=== PATIENT | female | born 1990 | race Caucasian/White ===

== ENCOUNTER 2019-05-24 14:38 | Emergency (ER) | payer OTHER ==
[2019-05-24 14:59] LABS: RAPID STREP SCREEN Negative (Negative)
--- NOTE | 2019-05-24 17:15 | ED Physician Documentation ---
PD HPI HEENT - Stated complaint Stated Complaint: SORE THROAT/WHITE PATCHES - Chief complaint Chief Complaint: Heent - History obtained from History obtained from: Patient - History of Present Illness Timing - onset: How many days ago (3) Timing - duration: Days (3) Timing - details: Gradual onset, Still present Location: Throat Improves: Medication Worsens: Swalllowing Associated symptoms: Fever, Congestion, Rhinorrhea, Swollen nodes, Headache Similar symptoms before: Diagnosis (strep) Recently seen: Not recently seen - Additional information Additional information: 29-year-old female has been sick for about 3 days with a sore throat she said a bit of a fever she noticed some white patches on her tonsils and she is come into the emergency department now for treatment she is had strep previously. Review of Systems Constitutional: reports: Fever, Myalgias, Fatigue Eyes: denies: Decreased vision Ears: denies: Ear pain Nose: reports: Congestion. denies: Rhinorrhea / runny nose Throat: reports: Sore throat Cardiac: denies: Chest pain / pressure, Palpitations Respiratory: denies: Dyspnea, Cough GI: denies: Nausea, Vomiting PD PAST MEDICAL HISTORY - Present Medications Home Medications: Ambulatory Orders Medication Instructions Recorded Confirmed Amox/Clav 875/125 [Augmentin] 1 each PO Q12H #20 tablet 05/24/19 - Allergies Allergies/Adverse Reactions: Allergies Allergy/AdvReac Type Severity Reaction Status Date / Time cefaclor [From [facility]] Allergy Rash Verified 05/24/19 14:44 PD ED PE NORMAL - Vitals Vital signs reviewed: Yes (hypertensive ) - General General: Alert and oriented X 3, No acute distress, Well developed/nourished - HEENT HEENT: Atraumatic, PERRL, EOMI, Ears normal, Moist mucous membranes, Other (2+ cryptic tonsils with exudates and tonsil with on the right.) - Neck Neck: Supple, no meningeal sign, No bony TTP, No JVD - Cardiac Cardiac: RRR, No murmur - Respiratory Respiratory: No respiratory distress, Clear bilaterally - Abdomen Abdomen: Soft, Non tender - Back Back: No CVA TTP, No spinal TTP - Derm Derm: Normal color, Warm and dry, No rash - Extremities Extremities: No deformity, No edema, No calf tenderness / cord - Neuro Neuro: Alert and oriented X 3, field sales specialist 2-12 intact, No motor deficit, No sensory deficit, Normal speech Eye Opening: Spontaneous Motor: Obeys Commands Verbal: Oriented GCS Score: 15 - Psych Psych: Normal mood, Normal affect Results - Vitals Vitals: Vital Signs - 24 hr 05/24/19 14:44 Temperature 36.5 C Heart Rate 77 Respiratory 14 Rate Blood Pressure 123/83 H O2 Saturation 100 Oxygen O2 Source Room air - Labs Labs: Laboratory Tests 05/24/19 14:48 Group A Strep Rapid Negative PD MEDICAL DECISION MAKING - ED course Complexity details: reviewed results, considered differential, d/w patient ED course: 29-year-old female with cryptic exudative tonsillitis has a negative rapid strep. She is administered dexamethasone 10 mg orally we will place her on some Augmentin. Departure - Departure Disposition: 01 Home, Self Care Clinical Impression: Acute tonsillitis Qualifiers: Pharyngitis/tonsillitis etiology: unspecified etiology Qualified Code(s): J03.90 - Acute tonsillitis, unspecified Condition: Stable Instructions: ED Tonsillitis Follow-Up: ARTIS COBB MD [Primary Care Provider] - Prescriptions: Amox/Clav 875/125 [Augmentin] 1 each PO Q12H #20 tablet
[2019-05-24] MEDS ORDERED: DEXAMETHASONE 10 MG/ML VIAL PO STA (17:32)
[2019-05-24] MEDS ORDERED: CHERRY SYRUP 10 ML UDC PO ONE (17:32)
[2019-05-24 17:38] VITALS: BP 120/83
== END 2019-05-24 17:38 | disposition home or self-care (01) ==
LOC: ED 14:38
DX: J03.90 Acute tonsillitis, unspecified (principal); Z86.19 Personal history of other infectious and parasitic diseases
CPT/HCPCS: 87070; 87430; 99283; 99284; A9270